=== PATIENT | female | born 1995 | race Caucasian/White ===

== ENCOUNTER 2021-02-26 22:00 | Emergency (ER) | payer OTHER ==
[~2021-02-26] VITALS: Ht 160 cm; Wt 61.0 kg
[2021-02-26] MEDS ORDERED: ACETAMINOPHEN 325MG TABLET PO ONE (23:30)
[2021-02-27] MEDS ORDERED: ALBU6.7H9 INH (01:44)
[2021-02-27 02:03] VITALS: BP 111/63
== END 2021-02-27 02:06 | disposition home or self-care (01) ==
LOC: ER 22:00
DX: J06.9 Acute upper respiratory infection, unspecified (principal); J45.909 Unspecified asthma, uncomplicated; Z20.822 Contact with and (suspected) exposure to COVID-19
CPT/HCPCS: 71045; 87804; 93005; 99285; C9803; U0003; U0005

== ENCOUNTER 2022-05-19 18:15 | Emergency (ER) | payer OTHER ==
[~2022-05-19] VITALS: Ht 160 cm; Wt 62.0 kg
[~2022-05-19 18:15] MED LIST: ALBU6.7H3 INH
[2022-05-19 18:29] VITALS: BP 110/66
[2022-05-19 19:35] LABS: BASOPHILS % 0.5 % (0.0-2.0); EOSINOPHILS % 2.9 % (0.0-5.0); LYMPHOCYTES % 18.7 % (20.0-50.0); MEAN CORPUSCULAR HEMOGLOBIN 30.9 pg (28.0-32.0); MEAN CORPUSCULAR VOLUME 88.4 fL (81.0-99.0); MEAN PLATELET VOLUME 9.4 fl (7.4-10.4); MONOCYTES % 9.5 % (2.0-8.0); NEUTROPHILS % 68.4 % (40.0-76.0); PLATELET 237 x1000/uL (130-400); RED BLOOD CELL COUNT 4.53 mill/uL (4.2-5.4); RED CELL DISTRIBUTION WIDTH 12.6 % (11.6-14.6)
[2022-05-19 19:37] LABS: CHLORIDE 104 mEq/L (98-107)
[2022-05-19 20:00] LABS: B-HCG QUANTITATIVE 19957 mIU/mL (<3)
[2022-05-19] MEDS ORDERED: IBUP-2030 PO (21:52)
== END 2022-05-19 22:03 | disposition home or self-care (01) ==
LOC: ER 18:15
DX: O03.9 Complete or unspecified spontaneous abortion without complication (principal); J45.909 Unspecified asthma, uncomplicated; Z98.890 Other specified postprocedural states
CPT/HCPCS: 36415; 76830; 76856; 80053; 84702; 85025; 86850; 86870; 86900; 99284

== ENCOUNTER 2022-10-31 16:57 | Emergency (ER) | payer OTHER ==
[~2022-10-31] VITALS: Ht 160 cm; Wt 59.0 kg
[~2022-10-31 16:57] MED LIST changes: +IBUP-2030 PO
[2022-10-31] MEDS ORDERED: ACETAMINOPHEN 325MG TABLET PO STA (17:05)
[2022-10-31] MEDS ORDERED: ACETAMINOPHEN 325MG TABLET PO NR (20:30)
[2022-10-31] MEDS ORDERED: IBUP-2028 MT (21:20)
[2022-10-31] MEDS ORDERED: CYCL10TA21 MT (21:25)
[2022-10-31 22:00] VITALS: BP 112/70
== END 2022-10-31 22:00 | disposition home or self-care (01) ==
LOC: ER 16:57
DX: M25.571 Pain in right ankle and joints of right foot (principal); R07.89 Other chest pain; M79.671 Pain in right foot; J45.909 Unspecified asthma, uncomplicated; Z98.890 Other specified postprocedural states; V49.9XXA Car occupant (driver) (passenger) injured in unspecified traffic accident, initial encounter; Y93.89 Activity, other specified; Y92.89 Other specified places as the place of occurrence of the external cause; Y99.8 Other external cause status
CPT/HCPCS: 71045; 73610; 73630; 99284